=== PATIENT | female | born 1930 | race Caucasian/White ===

== ENCOUNTER 2016-07-03 10:46 | Emergency (ER) | payer MEDICARE ==
--- NOTE | 2016-07-03 11:31 | UC ---
Skin Complaint HPI - HPI Summary HPI Summary: skin rash around the eyes x 4 days the rash is red, itchy, no new soap , makeups , no new shampoo or medicine - History of Current Complaint Chief Complaint: UCSkin Time Seen by Provider: 07/03/16 10:59 Stated Complaint: left eye swelling Hx Obtained From: Patient Onset/Duration: Gradual Onset, Lasting Days - 4, Still Present Timing: Constant Onset Severity: Moderate Current Severity: Moderate Location: Other - bilateral periorbital area Character: Pruritus, Redness Aggravating: Nothing Alleviating: Nothing Associated Signs & Symptoms: Positive: Negative - Allergy/Home Medications Allergies/Adverse Reactions: Allergies Allergy/AdvReac Type Severity Reaction Status Date / Time Aspirin Allergy Right Eye Verified 07/03/16 11:10 Bleeding Review of Systems Constitutional: Negative Skin: Rash Eyes: Negative ENT: Negative All Other Systems Reviewed And Are Negative: Yes PMH/Surg Hx/FS Hx/Imm Hx Previously Healthy: Yes - Surgical History Surgical History: Yes Surgery Procedure, Year, and Place: Left Eye Vitrectomy, 2011, [place]; Left breast benign cyst removed. Cholecystectomy, 1998, [facility]. Hysterectomy, 1984, [facility]. Tonsillectomy, 1938 - Family History Known Family History: Negative: Diabetes - Social History Alcohol Use: None Substance Use Type: None Smoking Status (MU): Never Smoked Tobacco - Immunization History Most Recent Influenza Vaccination: February 2014 Most Recent Tetanus Shot: 2009 Most Recent Pneumonia Vaccination: 2004 Physical Exam Triage Information Reviewed: Yes Appearance: Well-Appearing, No Pain Distress, Well-Nourished Vital Signs: Initial Vital Signs Temp 98.5 F 07/03/16 10:56 Pulse 67 07/03/16 10:56 Resp 20 07/03/16 10:56 BP 141/56 07/03/16 10:56 Vital Signs Reviewed: Yes Eyes: Positive: Conjunctiva Clear, Other: - macular rash bilateral periorbital area ENT: Positive: Normal ENT inspection, Hearing grossly normal, Pharynx normal Dental Exam: Normal Neck: Positive: Supple, Nontender, No Lymphadenopathy Respiratory: Positive: Chest non-tender, Lungs clear, Normal breath sounds Cardiovascular: Positive: RRR, No Murmur, Pulses Normal Skin: Positive: rashes - maculara rash bilateral periorbital area Course/Dx - Diagnoses Provider Diagnoses: periorbital dematitis Discharge - Discharge Plan Condition: Stable Disposition: HOME Prescriptions: Triamcinolone 0.1% CREAM(NF) [Kenalog Cream 0.1%(NF)] 1 applic TOPICAL BID #30 gm Patient Education Materials: Eczema (ED) Referrals: Elian Gonzalez MD [Primary Care Provider] - 7 Days
[2016-07-03 11:43] VITALS: BP 133/58
== END 2016-07-03 11:42 | disposition home or self-care (01) ==
LOC: UCCORT 10:46
DX: H01.133 Eczematous dermatitis of right eye, unspecified eyelid (principal); H01.136 Eczematous dermatitis of left eye, unspecified eyelid; Z88.6 Allergy status to analgesic agent
CPT/HCPCS: 99212; G0463

== ENCOUNTER 2018-01-31 10:04 | Emergency (ER) | payer MEDICARE ==
--- NOTE | 2018-01-31 13:45 | UC ---
Skin Complaint HPI - HPI Summary HPI Summary: 87 yo female presents with RIGHT breast redness, warmth, and mild pain since yesterday. She tells me that she woke up yesterday and noticed redness to her right breast. Today seems to have progressed and is more red, warm, and tender than yesterday. She does have a hx of BRCA in this breast and is s/p lumpectomy. She is followed by Dr. Radford of oncology and her last appt and mammogram was 09/2017 and normal per pt. She denies fever, chills, SOB, chest pain, new clothing, or injury to area. - History of Current Complaint Time Seen by Provider: 01/31/18 13:45 Stated Complaint: RIGHT BREAST SKIN COMPLAINT Hx Obtained From: Patient Onset/Duration: Sudden Onset Current Severity: None - Allergy/Home Medications Allergies/Adverse Reactions: Allergies Allergy/AdvReac Type Severity Reaction Status Date / Time aspirin Allergy See Comment Verified 01/31/18 14:03 Home Medications: Home Medications Letrozole (NF) [Femara (NF)] 2.5 mg PO DAILY 01/31/18 [History Confirmed ] Review of Systems Constitutional: Negative Skin: Rash Eyes: Negative ENT: Negative Respiratory: Negative Cardiovascular: Negative Gastrointestinal: Negative Neurovascular: Negative Neurological: Negative Psychological: Negative All Other Systems Reviewed And Are Negative: Yes PMH/Surg Hx/FS Hx/Imm Hx - Additional Past Medical History Additional PMH: Right BRCA - Surgical History Surgical History: Yes Surgery Procedure, Year, and Place: Left Eye Vitrectomy, 2011, [place]; Left breast benign cyst removed. Cholecystectomy, 1998, [facility]. Hysterectomy, 1984, [facility]. Tonsillectomy, 1938. Right Breast Lumpectomy 09/20/16 - Family History Known Family History: Negative: Diabetes - Social History Occupation: Retired Lives: With Family Alcohol Use: None Substance Use Type: None Smoking Status (MU): Never Smoked Tobacco - Immunization History Most Recent Influenza Vaccination: February 2014 Most Recent Tetanus Shot: 2009 Most Recent Pneumonia Vaccination: 2004 Physical Exam - Summary Physical Exam Summary: GENERAL: NAD. WDWN. No pain distress. SKIN: RIGHT BREAST: Moderate erythema about whole breast. Mild warmth. Mild dimpling around 5 o'clock position. NTTP. No nipple discharge. No streaking, bleeding, or drainage. NECK: Supple. Nontender. No lymphadenopathy. CHEST: No accessory muscle use. Breathing comfortably and in no distress. CV: Pulses intact. Cap refill <2seconds NEURO: Alert. PSYCH: Age appropriate behavior. Triage Information Reviewed: Yes Vital Signs: Vital Signs: Temp Pulse Resp BP Pulse Ox 98.1 F 66 18 143/65 97 01/31/18 14:05 01/31/18 14:05 01/31/18 14:05 01/31/18 14:05 01/31/18 14:05 Vital Signs Reviewed: Yes Course/Dx - Course Course Of Treatment: Suspect mastitis vs recurrent BRCA. Will treat her with doxycycline and have her f/u with Dr. Radford early next week for a recheck. Pt agreeable with plan. - Diagnoses Provider Diagnoses: Right mastitis Discharge - Sign-Out/Discharge Documenting (check all that apply): Patient Departure All imaging exams completed and their final reports reviewed: No Studies - Discharge Plan Condition: Stable Disposition: HOME Prescriptions: DOXYcycline CAP(*) [DOXYcycline 100MG CAP(*)] 100 mg PO BID #14 cap Patient Education Materials: Mastitis (ED) Referrals: Elian Gonzalez MD [Primary Care Provider] - Nahum Radford MD [Medical Doctor] - 02/04/18 Additional Instructions: If you develop a fever, shortness of breath, chest pain, new or worsening symptoms - please call your PCP or go to the ED. 1) Please call Dr. Radford to schedule a follow up appointment as soon as possible for a recheck - Billing Disposition and Condition Condition: STABLE Disposition: Home - Attestation Statements Provider Attestation: I was available for consult. This patient was seen by the [facility]. The patient was not presented to, seen by, or examined by me. -Luca
[2018-01-31 14:08] VITALS: BP 143/65
== END 2018-01-31 14:11 | disposition home or self-care (01) ==
LOC: UCCORT 10:04
DX: N61.0 Mastitis without abscess (principal)
CPT/HCPCS: 99212; G0463

== ENCOUNTER 2018-05-12 09:12 | Emergency (ER) | payer MEDICARE ==
[2018-05-12 10:32] VITALS: BP 137/56
--- NOTE | 2018-05-12 10:49 | UC ---
Skin Complaint HPI - HPI Summary HPI Summary: 87 y/o female presents to the urgent care c/o Large red area on R side of back with little pustule noted. Pt states she started feeling like her bra was rubbing causing discomfort, then looked at area in the mirror and came in to be seen. - History of Current Complaint Chief Complaint: UCSkin Time Seen by Provider: 05/12/18 10:47 Stated Complaint: BACK SKIN COMPLAINT Hx Obtained From: Patient Onset/Duration: Gradual Onset, Lasting Days - 2 days, Still Present, Worse Since - today Skin Exposure Onset/Duration: Days Ago - 2 days Timing: Constant Onset Severity: Mild Current Severity: Moderate Pain Intensity: 3 - at touch Pain Scale Used: 0-10 Numeric Location: Discrete - RT upper mid back Character: Swelling, Redness, Raised, Painful Aggravating Factor(s): Touch Alleviating Factor(s): OTC Meds Associated Signs & Symptoms: Positive: Rash, Drainage - yellowish, Tenderness. Negative: Fever, Chills Related History: Possible Reaction to: Environmental Exposure - Allergy/Home Medications Allergies/Adverse Reactions: Allergies Allergy/AdvReac Type Severity Reaction Status Date / Time aspirin Allergy See Comment Verified 05/12/18 10:32 PMH/Surg Hx/FS Hx/Imm Hx Previously Healthy: Yes Cancer History: Breast Cancer - RT breast. Cancer free for the past 1.5years - Surgical History Surgical History: Yes Surgery Procedure, Year, and Place: Left Eye Vitrectomy, 2011, [place]; Left breast benign cyst removed. Cholecystectomy, 1998, [facility]. Hysterectomy, 1984, [facility]. Tonsillectomy, 1938. Right Breast Lumpectomy 09/20/16 - Family History Known Family History: Positive: Unknown Negative: Diabetes - Social History Occupation: Retired Lives: With Family Alcohol Use: None Substance Use Type: None Smoking Status (MU): Never Smoked Tobacco - Immunization History Most Recent Influenza Vaccination: February 2014 Most Recent Tetanus Shot: 2009 Most Recent Pneumonia Vaccination: 2004 Physical Exam - Summary Physical Exam Summary: Vital Signs Reviewed: Yes General: well developed, well nourished old female sitting in the examining table w/o any apparent distress Eye Exam: Normal Eyes: Positive: Conjunctiva Clear - PERRLA, EOMI, fundi grossly normal ENT: Positive: Normal ENT inspection, Hearing grossly normal, Pharynx normal, TMs normal Neck: Positive: Supple, Nontender, No Lymphadenopathy Respiratory: Positive: Chest non-tender, Lungs clear, Normal breath sounds, No respiratory distress Cardiovascular: Positive: RRR, No Murmur, Pulses Normal, Brisk Capillary Refill Abdomen Description: Positive: Nontender, No Organomegaly, Soft. Negative: CVA Tenderness (R), CVA Tenderness (L) Bowel Sounds: Positive: Present Musculoskeletal: Positive: Strength Intact, ROM Intact, No Edema Neurological: Positive: Alert, Muscle Tone Normal Psychological Exam: Normal Skin: Positive: RT side of upper mid back w/ a small erythematous pustule that is indurated and fluctuant, tender to palpation, swollen, around 3.0 x3.0cm in size and warm to touch. FROM of back, sensation is intact, capillary refill WNL , reflexes WNL Triage Information Reviewed: Yes Vital Signs: Initial Vital Signs Temp 98.1 F 05/12/18 10:29 Pulse 72 05/12/18 10:29 Resp 16 05/12/18 10:29 BP 137/56 05/12/18 10:29 Pulse Ox 99 05/12/18 10:29 Course/Dx - Differential Diagnoses - Skin Complaint Differential Diagnoses: Abscess, Cellulitis, Contact Dermatitis, Local Allergic Reaction, MRSA - Diagnoses Provider Diagnosis: Abscess of back Discharge - Sign-Out/Discharge Documenting (check all that apply): Patient Departure - D/C home All imaging exams completed and their final reports reviewed: No Studies - Discharge Plan Condition: Stable Disposition: HOME Prescriptions: Bacitracin OINTMENT* 1 applic TOPICAL BID #1 tube Cephalexin CAP* [Keflex CAP*] 500 mg PO QID #28 cap Patient Education Materials: Abscess (ED) Referrals: Elian Gonzalez MD [Primary Care Provider] - 2 Days Additional Instructions: 1-Please take full course of antibiotic to avoid resistance. Keep wound clean and dry with a sterile dressing. Apply bacitracin topical as directed 2- F/u wound check up in 2 days with your PCP or at the urgent care for removal of packing 3-. Take Tylenol PO q6-8hrs prn for pain or swelling. 4-If you develop fever or redness despite antibiotic please go to the ER immediately or return to the Urgent care. 5- Wound culture sent to lab, if any abnormal result you will receive a call from us. - Billing Disposition and Condition Condition: STABLE Disposition: Home
[2018-05-12] MEDS ORDERED: Lidocaine 1%* 5 ML VIAL INJ ONE (10:59)
== END 2018-05-12 11:47 | disposition home or self-care (01) ==
LOC: UCCORT 09:12
DX: L02.212 Cutaneous abscess of back [any part, except buttock and flank] (principal); Z85.3 Personal history of malignant neoplasm of breast; Z88.6 Allergy status to analgesic agent
CPT/HCPCS: 87070; 87076; 87205; 87640; 87641; 99212; G0463